=== PATIENT | male | born 2005 | race African-American/Black ===

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

== ENCOUNTER 2024-06-23 11:50 | Emergency (ER) | payer SELFPAY ==
[~2024-06-23] VITALS: Ht 165.1 cm; Wt 61.2 kg
[~2024-06-23 11:50] MED LIST: FAMO40TA70 MT; percocet
[2024-06-23 12:06] VITALS: O2SAT 100
[2024-06-23 12:57] LABS: BASOPHILS % 1.2 % (0.0-2.0); EOSINOPHILS % 1.2 % (0.0-5.0); HEMATOCRIT. 47.6 % (42.0-52.0); HEMOGLOBIN. 15.3 g/dL (14.0-18.0); LYMPHOCYTES % 26.6 % (20.0-50.0); MEAN CORPUSCULAR HEMOGLOBIN 27.1 pg (28.0-32.0); MEAN CORPUSCULAR HGB CONC 32.2 g/dL (31.0-37.0); MEAN CORPUSCULAR VOLUME 84.1 fL (80.0-94.0); MEAN PLATELET VOLUME 7.8 fl (7.4-10.4); MONOCYTES % 11.1 % (2.0-8.0); NEUTROPHILS % 59.9 % (40.0-76.0); PLATELET 369 x1000/uL (130-400); RED BLOOD CELL COUNT 5.66 mill/uL (4.7-6.1); RED CELL DISTRIBUTION WIDTH 13.4 % (11.6-14.6); WHITE BLOOD COUNT 5.5 x1000/uL (4.5-11.0)
[2024-06-23 13:03] LABS: CHLORIDE 103 mEq/L (98-107); POTASSIUM 3.9 mEq/L (3.5-5.1); SODIUM 136 mEq/L (136-145)
[2024-06-23 13:04] LABS: CALCIUM 10.1 mg/dL (8.7-10.4); CARBON DIOXIDE 24 mEq/L (21-32)
[2024-06-23 13:08] LABS: CREATININE 1.1 mg/dL (0.6-1.3)
[2024-06-23 13:09] LABS: GLUCOSE 86 mg/dL (70-105); UREA NITROGEN BLOOD 7 mg/dL (9-23)
[2024-06-23 13:11] LABS: ALANINE AMINOTRANSFERASE < 7 IU/L (10-49); ALBUMIN 5.2 g/dL (3.2-4.8); ASPARTATE AMINOTRANSFERASE 14 IU/L (<34); BILIRUBIN TOTAL 1.2 mg/dL (0.1-1.0)
[2024-06-23] MEDS: KETOROLAC 30MG/ML VIAL IV ONE (13:13)
[2024-06-23] MEDS ORDERED: IOHEXOL-300 100 ML BOTTLE ONE (13:48)
[2024-06-23] MEDS ORDERED: AMOX1TAB16 MT (14:19)
[2024-06-23] MEDS ORDERED: IBUP-2029 MT (14:19)
[2024-06-23 14:23] LABS: ERYTHROCYTE SEDIMENTATION RATE 26 mm/hr (0-15)
[2024-06-23 14:42] VITALS: BP 122/83; PULSE 83; RESP 18; TEMP 98.2
== END 2024-06-23 14:45 | disposition home or self-care (01) ==
LOC: ER 13:38
DX: K04.7 Periapical abscess without sinus (principal); F12.90 Cannabis use, unspecified, uncomplicated
CPT/HCPCS: 99285; 96374; 70487; 80053; 85025; 85651; 36415; 84145; Q9967; J1885